=== PATIENT | male | born 1960 | race Caucasian/White ===

== ENCOUNTER 2022-10-03 16:05 | Outpatient (CLI) | payer BC, SELFPAY ==
[2022-10-03 22:05] LABS: Albumin* 4.7 g/dL (3.3-5.0); Chloride* 103 mmol/L (96-114)
[2022-10-03 22:06] LABS: Sodium* 141 mmol/L (135-149)
[2022-10-03 22:08] LABS: Carbon Dioxide* 31 mmol/L (20-32); Cholesterol* 117 mg/dL (90-199); Estimated Glomerular Filt Rate 85 ml/min; Total Protein* 7.6 g/dL (6.0-8.3)
[2022-10-03 22:09] LABS: Alanine Aminotransferase* 86 U/L (4-50); Alkaline Phosphatase* 59 U/L (40-150); Aspartate Amino Transferase* 66 U/L (12-35); Bilirubin Total* 1.6 mg/dL (0.1-1.5); Blood Urea Nitrogen* 18 mg/dL (7-30); Calcium* 9.6 mg/dL (8.4-10.6); Glucose* 129 mg/dL (60-115); Triglycerides* 172 mg/dL (40-149); Uric Acid* 8.6 mg/dL (2.2-8.4)
[2022-10-03 22:10] LABS: HDL Cholesterol* 40 mg/dL (>=40); LDL Cholesterol Calculated 43 mg/dL (<100)
[2022-10-03 22:38] LABS: PSA Screen* 0.62 ng/mL (0.10-4.00)
== END 2022-10-03 16:06 | disposition home or self-care (01) ==
PROVIDERS: PCP Family Medicine; Visit Provider Family Medicine
DX: Z00.00 Encounter for general adult medical examination without abnormal findings (principal); I10 Essential (primary) hypertension; R73.03 Prediabetes; I71.21 Aneurysm of the ascending aorta, without rupture; M10.9 Gout, unspecified; Q23.1 Congenital insufficiency of aortic valve; Z12.5 Encounter for screening for malignant neoplasm of prostate
CPT/HCPCS: 80053; 80061; 84153; 84550

== ENCOUNTER 2023-01-13 09:53 | Outpatient (CLI) | payer BC, SELFPAY | END 2023-01-13 09:54 | disposition home or self-care (01) | LOC: NFLDREF 01-15 14:17 | PROVIDERS: PCP Family Medicine; Referring Provider Family Medicine; Visit Provider Family Medicine | DX: E11.9 Type 2 diabetes mellitus without complications (principal) | CPT/HCPCS: 80076 ==

== ENCOUNTER 2023-08-26 08:26 | Outpatient (CLI) | payer BC, SELFPAY | END 2023-08-26 08:27 | disposition home or self-care (01) | LOC: NFLDREF 08-27 05:44 | PROVIDERS: PCP Family Medicine; Referring Provider Family Medicine; Visit Provider Family Medicine | DX: E11.9 Type 2 diabetes mellitus without complications (principal); I10 Essential (primary) hypertension; Z12.5 Encounter for screening for malignant neoplasm of prostate; Z13.6 Encounter for screening for cardiovascular disorders | CPT/HCPCS: 80053; 80061; 84153 ==

== ENCOUNTER 2023-08-28 09:00 | Outpatient (CLI) | payer BC, SELFPAY | END 2023-08-28 09:01 | disposition home or self-care (01) | LOC: NFLDREF 08-31 05:44 | PROVIDERS: PCP Family Medicine; Referring Provider Family Medicine; Visit Provider Family Medicine | DX: E11.9 Type 2 diabetes mellitus without complications (principal); I10 Essential (primary) hypertension; M10.9 Gout, unspecified; R05.9 Cough, unspecified; Q23.1 Congenital insufficiency of aortic valve; I71.21 Aneurysm of the ascending aorta, without rupture; J32.9 Chronic sinusitis, unspecified; L57.0 Actinic keratosis | CPT/HCPCS: 82043; 82570 ==

== ENCOUNTER 2023-10-23 08:41 | Outpatient (CLI) | payer BC, SELFPAY ==
[2023-10-23] MEDS: PERFLUTREN LIPID MICROSPHERES 2 ML VIAL IV (09:49)
--- NOTE | 2023-10-23 09:50 | PC.NURSE ---
20G IV started in right hand, Definity given per instructional technology coordinator direction, saline lock removed once echo was completed.
== END 2023-10-23 08:42 | disposition home or self-care (01) ==
LOC: RAD 08:42
PROVIDERS: PCP Family Medicine; Visit Provider Family Medicine
DX: I71.21 Aneurysm of the ascending aorta, without rupture (principal); I35.0 Nonrheumatic aortic (valve) stenosis; I07.1 Rheumatic tricuspid insufficiency; Q23.1 Congenital insufficiency of aortic valve
CPT/HCPCS: 93306; Q9957

== ENCOUNTER 2024-01-28 08:26 | Outpatient (CLI) | payer BC, SELFPAY | END 2024-01-28 08:27 | disposition home or self-care (01) | PROVIDERS: PCP Family Medicine; Visit Provider Family Medicine | DX: R79.89 Other specified abnormal findings of blood chemistry (principal) | CPT/HCPCS: 80076 ==

== ENCOUNTER 2024-07-29 07:53 | Outpatient (CLI) | payer BC, SELFPAY | END 2024-07-29 07:54 | disposition home or self-care (01) | LOC: NFLDREF 08-01 14:02 | PROVIDERS: PCP Family Medicine; Referring Provider Family Medicine; Visit Provider Family Medicine | DX: Z00.00 Encounter for general adult medical examination without abnormal findings (principal); E11.9 Type 2 diabetes mellitus without complications; I10 Essential (primary) hypertension; E78.00 Pure hypercholesterolemia, unspecified; R79.89 Other specified abnormal findings of blood chemistry; Z12.5 Encounter for screening for malignant neoplasm of prostate | CPT/HCPCS: 80053; 80061; 82043; 82570; G0103 ==

== ENCOUNTER 2024-11-01 08:20 | Outpatient (CLI) | payer BC, MEDICARE, SELFPAY | END 2024-11-01 08:21 | disposition home or self-care (01) | PROVIDERS: PCP Family Medicine; Referring Provider Family Medicine; Visit Provider Family Medicine | DX: I10 Essential (primary) hypertension (principal); R79.89 Other specified abnormal findings of blood chemistry; E11.9 Type 2 diabetes mellitus without complications | CPT/HCPCS: 80053 ==

== ENCOUNTER 2024-12-13 07:08 | Outpatient (CLI) | payer BC, MEDICARE, SELFPAY ==
--- NOTE | 2024-12-13 07:15 | CRLHL7_ITS ---
For Patients: As a result of the Century Cures Act, medical imaging exams and procedure reports are released immediately into your electronic medical record. You may view this report before your referring provider. If you have questions, please contact your health care provider. INDICATION: Elevated LFTs COMPARISON: none TECHNIQUE: Real time sierra scale imaging and color Doppler analysis was performed of the right upper quadrant. FINDINGS: Liver echotexture is diffusely increased. The liver measures 15.0 cm. No intrahepatic mass. There is a normal appearance of the hepatic IVC and proximal abdominal aorta. There is no evidence of ascites. The gallbladder is of normal size and there is an echogenic stone present within the gallbladder measuring 1.1 cm. The gallbladder wall measures 2 mm in thickness. The common bile duct is of normal size and measures 4 mm in diameter at the level of the tao hepatis. The pancreas is difficult to visualize. 4 millimeter stone in the right kidney is suspected. No hydronephrosis. The right kidney measures 11.8 cm in length. IMPRESSION: Moderately severe diffuse hepatic steatosis. Cholelithiasis. Nonobstructing right nephrolithiasis. Dictated by Constantine Rodriguez MD @ 12/13/2024 10:54:53 AM (Electronically Signed)
== END 2024-12-13 07:09 | disposition home or self-care (01) ==
LOC: US 07:10
PROVIDERS: PCP Family Medicine; Visit Provider Family Medicine
DX: R79.89 Other specified abnormal findings of blood chemistry (principal); K76.0 Fatty (change of) liver, not elsewhere classified; K80.20 Calculus of gallbladder without cholecystitis without obstruction; N20.0 Calculus of kidney
CPT/HCPCS: 76705

== ENCOUNTER 2025-03-15 18:36 | Emergency (ER) | payer BC, SELFPAY ==
--- OUTSIDE RECORDS SUMMARY | 2025-03-15 18:38 | XMS_ITS | Clinical Summary ---
Author Organization [employer] [facility] Address [address] [place] [address] Care Team Providers Care Test Skein Winder Name Role Phone Ulysses Foreman MD Primary Care Provider [phone] Allergies Active Allergy Reactions Criticality Noted Date Comments Diltiazem Rash 01/10/2009 Unlisted Allergen (Include Detail In Comments) Rash 02/12/2017 Silverlon patches, caused red puffy and itchy area where and around patches were applied. Medications tetrahydrozoline- zn sulfate (VISINE-AC) 0.05-0.25 % ophthalmic solution Place 2 Drops into the eye(s). 1 Bottle 0 2 Active albuterol HFA (VENTOLIN HFA) 90 mcg/actuation inhalerIndication s:Cough Inhale 1-2 Puffs by mouth every 4 hours if needed. 1 Inhaler 7 Active aspirin enteric coated (ECOTRIN) 325 mg tablet Take 2 tablets by mouth every 4 hours if needed. 0 0 Active colchicine 0.6 mg tablet Take 0.6 mg by mouth 2 times daily. 1 Active lisinopriL (PRINIVIL; ZESTRIL) 10 mg tabletIndications :Essential hypertension Take 1 Tablet (10 mg) by mouth once daily. 90 Tablet 3 Active rosuvastatin (CRESTOR) 20 mg tabletIndications :Essential hypertension Take 1 Tablet (20 mg) by mouth at bedtime. 90 Tablet 1 3 Active carvediloL 3.125 mg tabletIndications :Primary hypertension,Aneu rysm of ascending aorta without rupture Take 1 Tablet (3.125 mg) by mouth two times daily. Additional refills require cardiology office visit. Please call [phone] to schedule 180 Tablet 5 Active Active Problems Problem Noted Date Diagnosed Date Type 2 diabetes mellitus wit hout complication, without long-term current use of insulin 01/13/2019 Overview (01/13/2019): December 2018: New diagnosis with fasting blood sugar 156 and hemoglobin A1c of 6.5. Deep vein thrombosis (DVT) o f brachial vein of left upper extremity 10/08/2016 Overview (11/07/2016): Sep 2016: after IV placed in the left arm, DVT of Brachial Vein, Started on xarelto and coag labs ordered prior to starting xarelto. Sep 2016: Antithrombin III was low and lupus anticoagulant was high. See Gall Consult Oct 2016: Antiphospholipid antibody was positive, and high titer positive Beta-2 Glycoprotein 1 Antibody, if positive on repeat testing ( after off xarelto) then exterminator anticoagulation, then switch to coumadin? Syncope 10/01/2016 Ascending aortic aneurysm 10/01/2016 Overview (10/01/2016): - Per [place] CT, 4.5cm Gout 01/21/2014 Overview (01/21/2014): December 2013: Left great toe per [facility] ER visit. Seasonal allergies 08/05/2011 SVT (supraventricular tachycardia) 11/17/2008 Overview (10/01/2016): - AVNRT s/p ablation 2008 - No more medications needed after procedure - no recurrent episodes Snoring 11/17/2008 Regular astigmatism 11/25/2007 Presbyopia 11/25/2007 Myopia 11/25/2007 Undiagnosed cardiac murmurs 07/02/2007 Overview (07/02/2007): echocardiogram done several yers back- patient obtaining records Essential hypertension 07/02/2007 Overview (11/10/2016): Sep 2016: Lisinopril started 10mg. Oct 2016: lisinopril doubled to 20mg. LATTICE DEGENERATION- OU WTH HOLES OS 06/04/2000 High triglycerides Encounters Date Type Department Care Team Description 01/19/2025 [place] [facility] [place] [address] [place] [address] Anthony Mg MD, PhD Refill Request (Carvedilol) 01/09/2025 [place] [facility] [place] [address] [place] [address] Jessica Morley I, RN Device Check 12/20/2024 10:00 AM CDT Ancillary Procedure [facility] [address] [facility] [address] [place] [address] 12/20/2024 9:00 AM CDT Ancillary Procedure [facility] [address] [facility] [address] [place] [address] 12/20/2024 8:40 AM CDT Orders Only [facility] [address] [facility] [address] [place] [address] Lab 12/20/2024 Travel 12/17/2024 Travel from Last 3 Months Immunizations Immunization Administration Dates Next Due Td (Age >=7 Years) 10/30/2000 Tdap 01/10/2009 Family History * Patient is adopted Medical History Relation Name Comments Genetic Other unobtainable ad opted, no previous problems anesthesia Relation Name Status Comments Other Social History Tobacco Use Types Packs/Day Years Used Date Smoking Tobacco: Former Cigarettes 0.5 4.2 1 977 - 12/27/1980 Smokeless Tobacco: Never Tobacco Cessation:Counseling Given: Yes Comments:quit in 1980 Alcohol Use Standard Drinks/Week Comments Yes 0 (1 standard drink = 0.6 oz pure alcohol) Alcoholic Drinks/day: <1, occasional use PHQ-2 Answer Date Recorded PHQ-2 Score 0 11/27/2018 Social Connections Answer Date Recorded Frequency of Communication with Friends and Fami ly Not on file 09/28/2021 Financial Resource Strain Answer Date R ecorded Difficulty of Paying Living Expenses Not on file 09/28/2021 Difficulty of Paying Living Expenses Not on file 09/28/2021 Sex and Gender Information Value Date Recorded Sex Assigned at Not on file Legal Sex Male 5:25 AM [employer] Gender Identity Not on file Sexual Orientation Not on file Obstetrics History Last Filed Vital Signs Vital Sign Reading Time Taken Comments Blood Pressure 124/84 07/01/2021 8:28 AM CDT Pulse 48 07/01/2021 8:28 AM CDT Temperature 36.7 C (98 F) 12/29/2016 11:44 AM CDT Respiratory Rate 12 01/06/2019 12:49 PM CDT Oxygen Saturation 98% 02/12/2017 11:43 AM CDT Inhaled Oxygen Concentration - - Weight 97.7 kg (215 lb 6.4 oz) 07/01/2021 8:28 A M CDT Height 170.2 cm (5' 7) 07/01/2021 8:28 AM CDT Body Mass Index 33.74 07/01/2021 8:28 AM CDT Plan of Treatment Upcoming Encounters Date Type Department Care Team (Late st Contact Info) Description 06/01/2025 Cardiac Device Check [employer] [facility] [phone] Health Maintenance Due Date Last Done Comments HIV for age 15-65 1974 Hepatitis C screening for age 18-79 1977 Pneumococcal series for age 50+ (1 of 2 - PCV) 1978 Colonoscopy through age 75 2004 Zoster (shingles) series for age 50+ (1 of 2) 2009 Tetanus booster 01/10/2019 01/10/2009, 10/30/2000 Depression screening for age 12+ 01/07/2020 01/06/2019, 01/20/2018, 07/14/2016 BMI (ht and wt on same day) for age 18+ 07/01/2022 07/01/2021, 01/06/2019, 01/20/2018, Additional history exists Lipids for age 45-75 01/13/2024 01/12/2019, 01/20/2018, 11/18/2008 COVID-19 vaccine series ( season) 2024 Influenza Vaccine (Season Ended) 2025 RSV vaccine for adults or (1 - 1-dose 75+ series) 2034 Tdap Completed 01/10/2009 Hepatitis B series for 19+ Aged Out N o longer eligible based on patient's age to complete this topic Goals Goal Patient Goal Type Associated Problems Recent Progress Patient-Stated? Author BLOOD PRESSURE - MAINTAINS BP less than 140/90 Blood Pressure No Sunita Moody MD Procedures Procedure Name Priority Date/Time Associated Diagnosis Comments CTA CHEST - CV DUAL READ Routine 12/20/2024 9:50 AM CDT Aneurysm of ascending aorta without rupture Bicuspid aortic valve CTA CHEST - RAD DUAL READ Routine 12/20/2024 9:50 AM CDT Aneurysm of ascending aorta without rupture Bicuspid aortic valve ECHO TTE COMPLETE WO CONTRAST Routine 12/20/2024 9:34 AM CDT Aneurysm of ascending aorta without rupture Bicuspid aortic valve CREATININE,ISTAT Routine 12/20/2024 8:32 AM CDT Preprocedural cardiovascular examination LIPID PANEL W REFLEX MEASURED LDL Routine 01/12/2019 8:59 AM CDT Screening cholesterol level from Last 3 Months or Most Recently Relevant to Health Maintenance Results * CTA CHEST - CV DUAL READ (12/20/2024 9:50 AM CDT) Anatomical Region Laterality Modality CHEST Computed Tomogra phy Narrative 12/20/2024 3:40 PM CDT STUDY: CHEST AORTIC CT ANGIOGRAPHY Study date: 12/20/2024 Indication: 64 year-old male with bicuspid aortic valve and ascending aortic aneurysm has been referred for evaluation of thoracic aorta morphology. STUDY PARAMETERS: Scanner: Siemens Definition Force Contrast: 90 ml of Omnipaque 350 Scan protocol: Flash Radiation dose length product: 192 FINAL IMPRESSIONS: Enlarged ascending aorta with maximum cross-sectional diameters of 48 x 47 mm and maximum cross-sectional area to height ratio of 10.1 cm2/m. Normal abdominal aorta size and morphology. No prior cross sectional imaging available for comparison. Please see separate radiology report for nonvascular findings. FINDINGS: Thoracic aorta: Left-sided arch. No atheromatous disease in the entire thoracic aorta. Maximum true cross-sectional dimensions are - Aortic sinus: 40 x 39 x 36 mm maximum [id number] and cross-sectional area of 11.8 cm2 Ascending aorta: 48 x 47 mm and cross-sectional area of 17.2 cm2 , area height index 10.1 cm2/m. Arch: 24 x 25 mm Descending thoracic aorta: 25 x 24 mm. Left atrium: Normal contrast opacification. Pulmonary veins: Normal anatomy. Coronary arteries: Mild calcification noted along the courses of the LAD. The aortic valve is moderately calcified. Right heart: Device leads in right atrium and ventricle Pericardium: No effusion Great arteries: Normal great artery branching pattern. Brachiocephalic artery: Patent. Visualized right subclavian artery: Patent. Visualized right common carotid artery: Patent. Visualized left common carotid artery: Patent. Visualized left subclavian artery: Patent. Abdominal aorta: Normal size and morphology. No atherosclerosis. Abdominal aorta branch arteries: Splenic artery: Separate ostium from hepatic artery and patent. Hepatic artery: Sepearte ostium from splenic artery and patent Visualized superior mesenteric artery: Patent. FOR PATIENT: Results are automatically released to your [employer]) account once available, in compliance with federal regulations. This means that you may see your results before your provider has had a chance to review them. Please allow 2-3 business days for your provider to comment on the results. Lemuel Castelan MD General Management Architect Reginald Weston MD Cardiology [address], [address] 12/20/2024 3:34 PM Anthony Mg MD, PhD CT Fin al Result * CTA CHEST - RAD DUAL READ (12/20/2024 9:50 AM CDT) Anatomical Region Laterality Modality CHEST Computed Tomogra phy 12/20/2024 12:3 9 PM CDT Impressions 12/20/2024 12:39 PM CDT : 1. See separate cardiology report for cardiac findings. 2. Cholelithiasis. Please note that all CT scans at this facility use dose modulation, iterative reconstruction and/or weight-based dosing when appropriate to reduce radiation dose to as low as reasonably achievable. Please note that all CT scans at this facility use dose modulation, iterative reconstruction, and/or weight-based dosing when appropriate to reduce radiation dose to as low as reasonably achievable. Dictated by Ankur Pemberton MD @ 12/20/2024 12:39:01 PM (Electronically Signed) Narrative 12/20/2024 12:39 PM CDT For Patients: As a result of the Cures Act, medical imaging exams and procedure reports are released immediately into your electronic medical record. You may view this report before your referring provider. If you have questions, please contact your health care provider. THIS IS THE RADIOLOGY OVER READ REPORT OF A DUAL READ STUDY. READ THE SEPARATE CARDIOLOGY REPORT FOR CARDIOVASCULAR FINDINGS. REPORTS MAY BE FINALIZED AT DIFFERENT TIMES. : COMPARISON: : Two-view chest 25 December 2016 TECHNIQUE: : Please see cardiology report for technical information. This exam is being performed in conjunction with the services provided by the [facility] ([facility]). INDICATION: Cardiac over-read. Ascending aortic aneurysm. FINDINGS: No pathologic adenopathy. No pericardial or pleural effusion. No hiatus hernia. Large lamellated mineralized dependent stone in the proximal gallbladder. No significant finding in lung parenchyma. Procedure Note Ankur Pemberton MD - 12/20/2024 For Patients: As a result of the Cures Act, medical imagingexams and procedure reports are released immediately into your electronicmedical record. You may view this report before your referring provider.If you have questions, please contact your health care provider. THIS IS THE RADIOLOGY OVER READ REPORT OF A DUAL READ STUDY. READ THESEPARATE CARDIOLOGY REPORT FOR CARDIOVASCULAR FINDINGS. REPORTS MAY BEFINALIZED AT DIFFERENT TIMES. : COMPARISON: : Two-view chest 25 December 2016 TECHNIQUE: : Please see cardiology report for technical information. This exam is being performed in conjunction with the services provided bythe [facility] ([facility]). INDICATION: Cardiac over-read. Ascending aortic aneurysm. FINDINGS: No pathologic adenopathy. No pericardial or pleural effusion. No hiatushernia. Large lamellated mineralized dependent stone in the proximalgallbladder. No significant finding in lung parenchyma. IMPRESSION: : 1. See separate cardiology report for cardiac findings. 2. Cholelithiasis. Please note that all CT scans at this facility use dose modulation,iterative reconstruction and/or weight-based dosing when appropriate toreduce radiation dose to as low as reasonably achievable. Please note that all CT scans at this facility use dose modulation,iterative reconstruction, and/or weight-based dosing when appropriate toreduce radiation dose to as low as reasonably achievable. Dictated by Ankur Pemberton MD @ 12/20/2024 12:39:01 PM (Electronically Signed) us Anthony Mg MD, PhD CT Fin al Result * ECHO TTE COMPLETE WO CONTRAST (12/20/2024 9:34 AM CDT) AORTIC VALVE MEAN PG 27 mmHg PEAK TR VELOCITY 2.3 m/s LVEDD 4.7 cm EJECTION FRACTION 55 - 60% Anatomical Region Laterality Modality Ultrasound 12/20/2024 8:40 AM CDT Narrative 12/20/2024 9:52 AM CDT ECHOCARDIOGRAM HELIO CRAIG : 1960 64 years Study Date: 12/20/2024 8:40:19 AM Gender: M BP: 124/84 mmHg Height: 170.18 cm BSA: 2.09 m Weight: 97.52 kg Tech: EVELYN Referring MD: ANTHONY MG Site: [facility] Reading Location: MOBILE - OP Patient Location: Outpatient. Procedure: 2D, Color Doppler and Spectral Doppler. Indication for study: Aneurysm of ascending aorta without rupture; Bicuspid aortic valve Cardiac Rhythm: Normal sinus.Study quality: Fair. Final Impressions: 1. Normal LV size, normal wall thickness, normal global systolic function with an estimated EF of 55 - 60%. 2. Bicuspid aortic valve with fusion of the left and right coronary cusps. Moderate stenosis and mild regurgitation. The aortic valve peak velocity is 3.4 m/s, the peak gradient is 45 mmHg, and the mean gradient is 27 mmHg. The aortic valve area is 1.25 cm with a dimensionless index of 0.25. The stroke volume index is 46.0 ml/m . 3. Right ventricular cavity size is normal, global systolic RV function is normal. 4. Tricuspid valve is normal and mild-moderate tricuspid regurgitation. 5. Dilated ascending aorta, diameter of 4.8 cm (upper limit of normal for age, sex, and BSA is 4.2 cm), Height Index 2.82. 6. Dilated sinus of Valsalva, diameter of 4.4 cm (upper limt of normal for age, sex, and BSA is 4.2 cm), Height Index 2.59 cm/m. Comparison Compared to prior exam of 10/23/2023, there has been no significant change. Chamber Sizes and Function Normal left ventricular size, normal wall thickness, normal global systolic function with an estimated EF of 55 - 60%. No resting regional wall motion abnormality visualized. Left atrial size is normal. Left atrial pressure is normal. Right ventricular cavity size is normal, global systolic RV function is normal. RV wall thickness is normal. Dual chamber pacemaker leads are seen in the right atrium and right ventricle. Pacing wire/catheter visualized in the right ventricle and pacing wire/catheter visualized in the right atrium. The right atrium is normal. The pulmonary artery is of normal size and origin. The sinus of Valsalva is dilated. The ascending aorta is dilated. Valves, RV Pressures and Diastolic Function The aortic valve is Bicuspid aortic valve with fusion of the left and right coronary cusps. and calcified, moderate stenosis and mild regurgitation. The mitral valve is normal in structure, trace mitral regurgitation. Indeterminate pattern of LV diastolic filling. The tricuspid valve is normal in structure and mild-moderate tricuspid regurgitation. The tricuspid regurgitant velocity is 2.3 m/s, the estimated right ventricular systolic pressure is 21 mmHg plus right atrial pressure. The pulmonic valve is not well visualized. Trace pulmonary regurgitation. Masses, Effusion, Shunts There is no pericardial effusion. The inferior vena cava is normal sized, respiratory size variation greater than 50%. No left to right shunting was detected by limited color flow Doppler interrogation of the interatrial septum. MEASUREMENTS AND CALCULATIONS 2-D Measurements and LV Function: LVID (d) 4.7 cm LV FS% (2D) 40 % LVID (s) 2.8 cm LVOT diameter 2.5 cm IVS (d) 1.0 cm HR 70 bpm LVPW (d) 1.1 cm LA Vol index 26 ml/m2 Ao Sinus 4.4 cm RV Basal Diam 3.4 cm Ao Sinus ULN 4.2 cm Asc Ao 4.8 cm Asc Ao ULN 4.2 cm Diastology: Mitral Tissue Doppler E Peak 0.7 m/s e', Septum 0.05 m/s A Peak 0.9 m/s e', Lateral 0.08 m/s E/A 0.8 E/e' Average 11.05 DT 207 msec Aortic Valve: Vmax 3.4 m/s SAIRA (V) 1.27 cm VTI 0.77 m SAIRA (I) 1.25 cm LVOT V max 0.9 m/s Max PG 45 mmHg LVOT VTI 0.20 m Mean PG 27 mmHg SV 96 ml Dim Index 0.25 SV index 46 ml/m CO 6.7 l/min CI 3.2 l/min/m Mitral Valve: MVA 3.7 cm MV P 1/2 60 msec Tricuspid Valve and estimated PA pressures: TR Vmax 2.3 m/s TAPSE 1.9 cm TR maxG 21 mmHg . This study was interpreted by an [facility] accredited facility. Final Procedure Note Dominguez Bullard MD - 12/20/2024 ECHOCARDIOGRAM HELIO CRAIG : 1960 64 years Study Date: 12/20/2024 8:40:19 AM Gender: M BP: 124/84 mmHg Height: 170.18 cm BSA: 2.09 m Weight: 97.52 kg Tech: [facility] Referring MD: ANTHONY MG Site: [facility] Reading Location: MOBILE - OP Patient Location: Outpatient. Procedure: 2D, Color Doppler and Spectral Doppler. Indication for study: Aneurysm of ascending aorta without rupture;Bicuspid aortic valve Cardiac Rhythm: Normal sinus.Study quality: Fair. Final Impressions: 1. Normal LV size, normal wall thickness, normal global systolic functionwith an estimated EF of 55 - 60%. 2. Bicuspid aortic valve with fusion of the left and right coronarycusps. Moderate stenosis and mild regurgitation. The aortic valve peakvelocity is 3.4 m/s, the peak gradient is 45 mmHg, and the mean gradientis 27 mmHg. The aortic valve area is 1.25 cm with a dimensionless indexof 0.25. The stroke volume index is 46.0 ml/m . 3. Right ventricular cavity size is normal, global systolic RV functionis normal. 4. Tricuspid valve is normal and mild-moderate tricuspid regurgitation. 5. Dilated ascending aorta, diameter of 4.8 cm (upper limit of normal forage, sex, and BSA is 4.2 cm), Height Index 2.82. 6. Dilated sinus of Valsalva, diameter of 4.4 cm (upper limt of normalfor age, sex, and BSA is 4.2 cm), Height Index 2.59 cm/m. Comparison Compared to prior exam of 10/23/2023, there has been no significantchange. Chamber Sizes and Function Normal left ventricular size, normal wall thickness, normal globalsystolic function with an estimated EF of 55 - 60%. No resting regionalwall motion abnormality visualized. Left atrial size is normal. Leftatrial pressure is normal. Right ventricular cavity size is normal, globalsystolic RV function is normal. RV wall thickness is normal. Dual chamberpacemaker leads are seen in the right atrium and right ventricle. Pacingwire/catheter visualized in the right ventricle and pacing wire/cathetervisualized in the right atrium. The right atrium is normal. The pulmonaryartery is of normal size and origin. The sinus of Valsalva is dilated. Theascending aorta is dilated. Valves, RV Pressures and Diastolic Function The aortic valve is Bicuspid aortic valve with fusion of the left andright coronary cusps. and calcified, moderate stenosis and mildregurgitation. The mitral valve is normal in structure, trace mitralregurgitation. Indeterminate pattern of LV diastolic filling. Thetricuspid valve is normal in structure and mild-moderate tricuspidregurgitation. The tricuspid regurgitant velocity is 2.3 m/s, theestimated right ventricular systolic pressure is 21 mmHg plus right atrialpressure. The pulmonic valve is not well visualized. Trace pulmonaryregurgitation. Masses, Effusion, Shunts There is no pericardial effusion. The inferior vena cava is normal sized,respiratory size variation greater than 50%. No left to right shunting wasdetected by limited color flow Doppler interrogation of the interatrialseptum. MEASUREMENTS AND CALCULATIONS 2-D Measurements and LV Function: LVID (d) 4.7 cm LV FS% (2D) 40 % LVID (s) 2.8 cm LVOT diameter 2.5 cm IVS (d) 1.0 cm HR 70 bpm LVPW (d) 1.1 cm LA Vol index 26 ml/m2 Ao Sinus 4.4 cm RV Basal Diam 3.4 cm Ao Sinus ULN 4.2 cm Asc Ao 4.8 cm Asc Ao ULN 4.2 cm Diastology: Mitral Tissue Doppler E Peak 0.7 m/s e', Septum 0.05 m/s A Peak 0.9 m/s e', Lateral 0.08 m/s E/A 0.8 E/e' Average 11.05 DT 207 msec Aortic Valve: Vmax 3.4 m/s SAIRA (V) 1.27 cm VTI 0.77 m SAIRA (I) 1.25 cm LVOT V max 0.9 m/s Max PG 45 mmHg LVOT VTI 0.20 m Mean PG 27 mmHg SV 96 ml Dim Index 0.25 SV index 46 ml/m CO 6.7 l/min CI 3.2 l/min/m Mitral Valve: MVA 3.7 cm MV P 1/2 60 msec Tricuspid Valve and estimated PA pressures: TR Vmax 2.3 m/s TAPSE 1.9 cm TR maxG 21 mmHg . This study was interpreted by an [facility] accredited facility. Final Anthony Mg MD, PhD ECHO ORD Fin al Result * CREATININE,ISTAT (12/20/2024 8:32 AM CDT) POCT,CREATININE , ISTAT 1.1 0.6 - 1.3 mg/dL [facility] Blood BLOOD SPECIMEN / Unknown 12/20/2024 8:32 AM CDT 12/20/2024 8:32 AM CDT Anthony Mg MD, PhD CHEMISTRY Fin al Result [facility] [address] [place] [address], [facility]Urgent [facility]) [address] [place] [address] * LIPID PANEL W REFLEX MEASURED LDL (01/12/2019 8:59 AM CDT) CHOLESTEROL,TOTAL 173 100 - 199 mg/dL 01/12/2019 4:42 PM CDT [facility] TRIGLYCERIDES 147 <150 mg/dL 01/12/2019 4:42 PM CDT [facility] HDL CHOLESTEROL 41 >40 mg/dL 9 4:42 PM CDT [facility] NON-HDL CHOLESTEROL 132 <145 mg/dl 01/12/2019 4:42 PM CDT [facility] CHOL/HDL RATIO 4.22 <4.50 01/12/2019 4:42 PM CDT [facility] LDL CHOLESTEROL 103 <=130 mg/dL 01/12/2019 4:42 PM CDT [facility] PROVIDER ORDERED STATUS FASTING 01/12/2019 4:42 PM CDT [facility] Blood BLOOD SPECIMEN / Unknown Venipuncture / Unknown 01/12/2019 8:59 AM CDT 01/12/2019 8:59 AM CDT us Tavo Balderrama MD CHEMISTRY Final Res ult [facility] [address] [place] [address], from Last 3 Months or Most Recently Relevant to Health Maintenance Insurance [facility] Advance Directives * Full Code (Latest Code Status on File) Date Activated Date Inactivated Comments 12/24/2016 7:04 AM 12/25/2016 1:11 PM * Full Code Date Activated Date Inactivated Comments 10/01/2016 1:33 PM 10/03/2016 2:46 PM Question Answer Comments Code Status Discussion: Discussed * Full Code Date Activated Date Inactivated Comments 01/19/2009 6:16 AM 01/19/2009 5:10 PM Care Teams Test Skein Winder Relationship Specialty Start Date End Date Ulysses Foreman MD [address] [place] [address] PCP - General Family Practice 04/10/20
[2025-03-15 18:43] VITALS: BP 172/103; PULSE 68; RESP 18; TEMP 36.6; O2SAT 98; BMI 33.7
--- NOTE | 2025-03-15 19:24 | CRLHL7_ITS ---
For Patients: As a result of the Century Cures Act, medical imaging exams and procedure reports are released immediately into your electronic medical record. You may view this report before your referring provider. If you have questions, please contact your health care provider. INDICATION: Right flank pain. TECHNIQUE: CT abdomen and pelvis without contrast. COMPARISON: None. FINDINGS: Lower chest: Partially imaged cardiac device leads. The lung bases are clear. Liver: Normal in size and attenuation. No suspicious masses. Gallbladder and bile ducts: Cholelithiasis. No inflammation or biliary ductal dilation. Pancreas: Unremarkable. No mass or inflammation. Spleen: Normal in size. No masses. Adrenal glands: Normal in size. No nodules. Kidneys: Punctate nonobstructing right nephrolith. GI tract: Diverticulosis without pericolonic inflammation. No obstruction. Normal appendix. Vasculature: Abdominal aorta is normal in caliber. Lymph nodes: No lymphadenopathy. Peritoneum/Abdominal Wall: Unremarkable. No free air or significant free fluid. Pelvis: Tiny focus of air within the bladder lumen. No pelvic masses. Bones: Unremarkable for age. IMPRESSION: 1. Punctate nonobstructing right nephrolith. No evidence for obstructive uropathy. 2. Tiny focus of air within the bladder lumen, possibly sequela of recent instrumentation. Cystitis cannot be excluded. 3. Cholelithiasis without evidence for acute cholecystitis. Please note that all CT scans at this facility use dose modulation, iterative reconstruction, and/or weight-based dosing when appropriate to reduce radiation dose to as low as reasonably achievable. Dictated by Lionel Everett MD @ 03/15/2025 8:00:03 PM (Electronically Signed)
--- NOTE | 2025-03-15 19:24 | ED.GENADULT ---
HPI - General Adult General Date Seen: 03/29/25 Chief complaint: Flank Pain Stated complaint: Lower R side back pain Time Seen by Provider: 03/15/25 18:56 Source: patient Mode of arrival: ambulatory Limitations: no limitations History of Present Illness HPI narrative: Patient is a 64-year-old male presenting to the emergency department for right flank pain. States he has a history of back issues but has never had pain like this before. States to constant throbbing pain to his right flank that is been gradually getting worse over the past 4 days. Typically a pain like this is able to stretch it out this has been unable to get rid of this pain. Has been taking aspirin home without any improvement in his symptoms. States he is not allowed to take NSAIDs. There has not had any fevers or chills. States the pain radiates from his right flank down his leg. Denies any numbness. Denies saddle anesthesia, IV drug use, urinary or bowel incontinence, urinary retention. No history of kidney stones. States he has been unable to sleep the past few nights because of the pain. States he cannot get comfortable. Denies dysuria, hematuria, abdominal pain, chest pain, shortness of breath, weakness, numbness. Related Data Previous Rx's ?Medication ?Instructions ?Recorded albuterol sulfate 90 mcg/actuation 2 puff inhalation Q6H PRN 08/28/23 aerosol inhaler (Ventolin HFA) shortness of breath or wheezing #8.5 grams aspirin 81 mg tablet,delayed 81 mg PO QDAY #90 tabs 08/28/23 release colchicine 0.6 mg tablet 0.6 mg PO BID #180 tabs 08/02/24 rosuvastatin 20 mg tablet 20 mg PO QDAY #90 tabs 08/02/24 carvedilol 3.125 mg tablet 6.25 mg (2 x 3.125 mg) PO BID #360 02/07/25 tabs lisinopril 40 mg tablet 40 mg PO QDAY #90 tabs 02/07/25 metformin 750 mg tablet,extended 1,500 mg (2 x 750 mg) PO QDAY #180 02/07/25 release 24 hr tabs Allergies Allergy/AdvReac Type Severity Reaction Status Date / Time alcohol (From Mastisol Allergy Unknown Unknown Verified 03/15/25 18:48 Adhesive) diltiazem Allergy Unknown Unknown Verified 03/15/25 18:48 gum mastic (From Mastisol Allergy Unknown Unknown Verified 03/15/25 18:48 Adhesive) methyl salicylate (From Allergy Unknown Unknown Verified 03/15/25 18:48 Mastisol Adhesive) storax (From Mastisol Allergy Unknown Unknown Verified 03/15/25 18:48 Adhesive) hayfever Allergy Mild congestion Uncoded 02/07/25 08:44 Review of Systems Status of ROS: Reports: 10 or more systems reviewed and unremarkable except as noted in History and below [facility] Medical History Elevated LFTs ?R79.89 - Other specified abnormal findings of blood chemistry (ICD-10) Diabetes mellitus ?E11.9 - Type 2 diabetes mellitus without complications (ICD-10) Encounter for annual physical exam ?Z00.00 - Encounter for general adult medical examination without abnormal findings (ICD-10) Social History Narrative: Retired 2 children Former smoker, quit in 1980, smoked for 4 years What is your current living situation?: declined to answer Problems where you live: declined to answer In the past 12 months, utilities in danger of being shut off: declined to answer In past 12 months, lack of transportation kept you from medical appts, meetings, work, or getting things needed for daily living: declined to answer In the past 12 mos, have been you worried that your food would run out before you had money to buy more?: declined to answer In the past 12 mos, the food you bought just didn't last and you didn't have money to buy more?: declined to answer Smoking Status: Former smoker How often do you have a drink containing alcohol: monthly or less How often do you have six or more drinks on one occasion: Never AUDIT-C Alcohol total score: 1 Non-prescribed substance use: denies use How often does anyone, including family, friends and others, physically hurt you: decline to answer How often does anyone, including family, friends and others, insult or talk down to you: decline to answer How often does anyone, including family, friends and others, threaten you with harm: decline to answer How often does anyone, including family, friends and others, scream or curse at you: decline to answer Health Related Social Needs: unsheltered homelessness (Z59.02) Exam Narrative: Exam Narrative: Const: Well-nourished, Well-developed, in mild distress Eyes: PERRL, no conjunctival injection, and symmetrical lids HENT: Atraumatic external nose and ears. Moist mucous membranes. Neck: Symmetric, trachea midline, No thyromegaly. CVS: RRR, No murmurs or gallops. Peripheral pulses 2+ and equal in all extremities RESP: Unlabored respiratory effort. Clear to auscultation bilaterally. GI: Nontender/Nondistended, No rebound or guarding. MSK:Extremities w/o deformity, Normal Active ROM, some tenderness in the right paraspinal muscles just above his posterior superior iliac spine Skin: Warm, Dry. No rashes or lesions. Neuro: Normal Muscle tone, No focal neurological deficits. Psych: Awake, Alert, & Oriented x3. Appropriate mood and affect. Const: Vital Signs, click to edit/add: Vital Signs - 24 hr 03/15/25 18:43 Temperature 98 F Pulse Rate [Right Pulse Oximeter] 68 Respiratory Rate 18 Blood Pressure [Ri ght Upper Arm] 172/103 H Pulse Oximetry 98 Oxygen Delivery Me thod Room Air Course Vital Signs Vital signs: Initial Vital Signs Temperature 98 F 03/15/25 18:43 Temperature Source Temporal Artery Scan 03/15/25 18:43 Pulse Rate 68 03/15/25 18:43 Pulse Rhythm Regular 03/15/25 18:43 Pulse Strength 3+ Normal 03/15/25 18:43 Respiratory Rate 18 03/15/25 18:43 Blood Pressure 172/103 H 03/15/25 18:43 Blood Pressure Mean 126 H 03/15/25 18:43 Blood Pressure Position Sitting 03/15/25 18:43 Pulse Oximetry 98 03/15/25 18:43 Oxygen Delivery Method Room Air 03/15/25 18:43 Vital Signs Temperature 98 F 03/15/25 18:43 Pulse Rate 68 03/15/25 18:43 Respiratory Rate 18 03/15/25 18:43 Blood Pressure 172/103 H 03/15/25 18:43 Pulse Oximetry 98 03/15/25 18:43 Oxygen Delivery Method Room Air 03/15/25 18:43 Temperature 98 F 03/15/25 18:43 Pulse Rate 68 03/15/25 18:43 Respiratory Rate 18 03/15/25 18:43 Blood Pressure 172/103 H 03/15/25 18:43 Pulse Oximetry 98 03/15/25 18:43 Oxygen Delivery Method Room Air 03/15/25 18:43 Medical Decision Making MDM Narrative Medical decision making narrative: Patient is a 64-year-old male presenting for right low back pain. Pain is in the paraspinal musculature. This pain could be related to a kidney stone but seems unlikely. I explained to him by his pain sounds more like sciatica but he was concerned would kidney stone [address] scan to rule out. This will be done. He is not having any red flag symptoms of cauda equina. Do not believe MRI is necessary. CT scan showed no acute concerning abnormalities. There is some possible cystitis seen on the CT scan but he does not have any dysuria, hematuria and pain is not consistent with a UTI. I do not believe urinalysis is necessary. Most likely this is sciatica and he will be discharged home with oxycodone via instymeds. Discharge Plan Discharge Clinical Impression: Acute right-sided low back pain Qualifiers: Sciatica presence: with sciatica Sciatica laterality: sciatica of right side Qualified Code(s): M54.41 - Lumbago with sciatica, right side Patient Disposition: Home, Self-Care Condition: Stable Instructions: Acute Low Back Pain (ED) Additional Instructions: Continue to take your home pain medications but those are not helping you can try using the oxycodone. I do recommend following up with the primary care provider for possible physical therapy referral. If you developed urinary retention, bowel or bladder incontinence, or numbness of the area that would be sitting on a saddle or bike seat return for re-evaluation. Prescriptions: No Action metformin 750 mg tablet extended release 24 hr 1,500 mg PO QDAY Qty: 180 3RF lisinopril 40 mg tablet 40 mg PO QDAY Qty: 90 1RF carvedilol 3.125 mg tablet 6.25 mg PO BID Qty: 360 0RF Rx Instructions: must administer with a meal/food albuterol sulfate [Ventolin HFA] 90 mcg/actuation HFA aerosol inhaler 2 puff inhalation Q6H PRN (Reason: shortness of breath or wheezing) Qty: 8.5 3RF aspirin 81 mg tablet,delayed release (DR/EC) 81 mg PO QDAY Qty: 90 3RF colchicine 0.6 mg tablet 0.6 mg PO BID Qty: 180 3RF rosuvastatin 20 mg tablet 20 mg PO QDAY Qty: 90 4RF Follow Up/Referrals: Ulysses Foreman MD [Primary Care Provider, Family Practice] Stand Alone Forms: MyHealth Info Instructions
== END 2025-03-15 20:25 | disposition home or self-care (01) ==
PROVIDERS: Emergency Provider Student in an Organized Health Care Education/Training Program; PCP Family Medicine
DX: M54.41 Lumbago with sciatica, right side (principal)
CPT/HCPCS: 74176; 99283

== ENCOUNTER 2025-03-17 05:57 | Emergency (ER) | payer BC, SELFPAY ==
--- OUTSIDE RECORDS SUMMARY | 2025-03-17 05:59 | XMS_ITS | Clinical Summary ---
Author Organization [facility] Address [address] [place] [id number] Care Team Providers Care Supervisor [employer] Name Role Phone Ulysses Foreman MD Primary Care Provider [phone] Allergies Active Allergy Reactions Criticality Noted Date [...] refills require cardiology office visit. Please call [phone] to schedule 180 Tablet 5 Active Active [...] repeat testing ( after off xarelto) then adjunct faculty for medical terminology anticoagulation, then switch to coumadin? Syncope 10/01/2016 Ascending aortic aneurysm 10/01/2016 Overview (10/01/2016): - Per [place] CT, 4.5cm Gout 01/21/2014 Overview (01/21/2014): December [...] Type Department Care Team Description 01/19/2025 Refill [facility] [address] [place] [address] Anthony Mg MD, PhD Refill Request (Carvedilol) 01/09/2025 Telephone [facility] [address] [place] [address] Jessica Morley I, RN Device Check 12/20/2024 10:00 AM CDT Ancillary Procedure [facility] [address] [facility] [address] [place] [address] 12/20/2024 9:00 AM CDT Ancillary Procedure [facility] [address] [facility] [address] [place] [address] 12/20/2024 8:40 AM CDT Orders Only [facility] [id number] [facility] [address] [place] [address] Lab 12/20/2024 Travel 12/17/2024 Travel from Last [...] on file Legal Sex Male 5:25 AM [employer] Gender Identity Not on file Sexual Orientation [...] Contact Info) Description 06/01/2025 Cardiac Device Check [facility] [phone] Health Maintenance Due Date Last Done Comments [...] 40 x 39 x 36 mm maximum [id number] and cross-sectional area of 11.8 cm2 Ascending [...] PATIENT: Results are automatically released to your [employer] account once available, in compliance with federal regulations. This means that you may see your results before your provider has had a chance to review them. Please allow 2-3 business days for your provider to comment on the results. Lemuel Castelan MD General Nurses Superintendent Reginald Weston MD Cardiology [address], [address] 12/20/2024 3:34 PM Anthony [...] low as reasonably achievable. Dictated by Ankur ePmberton MD @ 12/20/2024 12:39:01 PM (Electronically Signed) [...] conjunction with the services provided by the [facility] ([facility]). INDICATION: Cardiac over-read. Ascending aortic aneurysm. FINDINGS: [...] in conjunction with the services provided bythe [facility] ([facility]). INDICATION: Cardiac over-read. Ascending aortic aneurysm. FINDINGS: [...] Tech: EVELYN Referring MD: ANTHONY MG Site: [facility] Reading Location: MOBILE - OP Patient Location: [...] . This study was interpreted by an [facility] accredited facility. Final Procedure Note Dominguez Bullard MD - 12/20/2024 ECHOCARDIOGRAM HELIO CRAIG : 1960 64 years Study Date: 12/20/2024 8:40:19 AM Gender: M BP: 124/84 mmHg Height: 170.18 cm BSA: 2.09 m Weight: 97.52 kg Tech: [facility] Referring MD: ANTHONY MG Site: [facility] Reading Location: MOBILE - OP Patient Location: [...] . This study was interpreted by an [facility] accredited facility. Final Anthony Mg MD, PhD ECHO ORD Fin al Result * CREATININE,ISTAT (12/20/2024 8:32 AM CDT) POCT,CREATININE , ISTAT 1.1 0.6 - 1.3 mg/dL [facility] (Urgent Care) Blood BLOOD SPECIMEN / Unknown 12/20/2024 8:32 AM CDT 12/20/2024 8:32 AM CDT Anthony Mg MD, PhD CHEMISTRY Fin al Result [facility] [address] [place] [address], [facility] (Urgent Care) [address] [place] [address] * LIPID PANEL W REFLEX MEASURED LDL (01/12/2019 8:59 AM CDT) CHOLESTEROL,TOTAL 173 100 - 199 mg/dL 01/12/2019 4:42 PM CDT [facility] TRIGLYCERIDES 147 <150 mg/dL 01/12/2019 4:42 PM CDT [facility] HDL CHOLESTEROL 41 >40 mg/dL 9 4:42 PM CDT [facility] NON-HDL CHOLESTEROL 132 <145 mg/dl 01/12/2019 4:42 PM CDT [facility] CHOL/HDL RATIO 4.22 <4.50 01/12/2019 4:42 PM CDT [facility] LDL CHOLESTEROL 103 <=130 mg/dL 01/12/2019 4:42 PM CDT [facility] PROVIDER ORDERED STATUS FASTING 01/12/2019 4:42 PM CDT [facility] Blood BLOOD SPECIMEN / Unknown Venipuncture / Unknown 01/12/2019 8:59 AM CDT 01/12/2019 8:59 AM CDT us Tavo Balderrama MD CHEMISTRY Final Res ult [facility] [address] [place] [address], from Last 3 Months or Most Recently Relevant to Health Maintenance Insurance [facility] Advance Directives * Full Code (Latest Code Status on File) Date Activated Date Inactivated Comments 12/24/2016 7:04 AM 12/25/2016 1:11 PM * Full Code Date Activated Date Inactivated Comments 10/01/2016 1:33 PM 10/03/2016 2:46 PM Question Answer Comments Code Status Discussion: Discussed * Full Code Date Activated Date Inactivated Comments 01/19/2009 6:16 AM 01/19/2009 5:10 PM Care Teams Supervisor [employer] Treatment Plant Relationship Specialty Start Date End Date Ulysses Foreman MD [id number] [place] [address] PCP - General Family Practice 04/10/20
[2025-03-17 06:10] VITALS: BP 178/122; PULSE 85; RESP 18; TEMP 36.6; O2SAT 98; BMI 33.7
[2025-03-17 06:41] LABS: Lactate* 1.8 mmol/L (0.5-1.9)
[2025-03-17 06:55] LABS: Appearance Urine Clear (Clear); Bilirubin Urine Negative (Negative); Blood Urine Negative (Negative); Color Urine Yellow (Yellow); Glucose Urine Negative (Negative); Ketones Urine Negative (Negative); Leukocyte Esterase Urine Trace (Negative); Nitrite Urine Negative (Negative); Protein Urine 1+ (Negative); Specific Gravity Urine >= 1.030 (1.000-1.030); Urobilinogen Urine 0.2 (0.2-1.0); pH Urine 5.5 (5.0-8.5)
[2025-03-17 06:56] LABS: Basophils Absolute Auto 0.07 K/uL (0.00-0.30); Basophils Percent Auto 0.7 % (0.0-3.0); Eosinophils Absolute Auto 0.27 K/uL (0.00-0.50); Eosinophils Percent Auto 2.5 % (0.0-7.0); Hemoglobin* 15.9 gm/dL (13.5-17.5); Immature Granulocytes Abs Auto 0.04 K/uL (0.00-0.30); Immature Granulocytes Pct Auto 0.4 %; Lymphocytes Absolute Auto 3.05 K/uL (0.90-2.90); Lymphocytes Percent Auto 28.6 % (20-44); Mean Corpuscular HGB Conc 35 gm/dL (32-36); Mean Corpuscular Hemoglobin 31 pg (26-34); Mean Corpuscular Volume 91 fL (80-100); Monocytes Percent Auto 9.1 % (0.0-11.0); Neutrophils Absolute Auto 6.26 K/uL (1.7-7.0); Neutrophils Percent Auto 58.7 % (42.0-72.0); Platelet Count* 194 K/uL (140-440); RDW Coefficient of Variation % 12.4 % (11.5-15.5); Red Blood Count 5.06 m/uL (4.30-5.90); White Blood Count* 10.66 K/uL (4.50-11.00)
[2025-03-17 06:57] LABS: Slide Review Reflex No
[2025-03-17 07:08] LABS: Chloride* 100 mmol/L (96-114)
[2025-03-17 07:09] LABS: Bacteria Urine Few; Mucus Urine Few; RBC Urine 0-2 (0-2); Squamous Epithelial Cell Urine Few (None-Few)
[2025-03-17 07:09] LABS: Albumin* 4.6 g/dL (3.3-5.0); Potassium* 3.9 mmol/L (3.6-5.1); Sodium* 139 mmol/L (135-149)
[2025-03-17 07:12] LABS: Alanine Aminotransferase* 90 U/L (4-50); Alkaline Phosphatase* 61 U/L (40-150); Anion Gap 13 mEq/L (7-15); Aspartate Amino Transferase* 68 U/L (12-35); Bilirubin Total* 1.5 mg/dL (0.1-1.5); Blood Urea Nitrogen* 24 mg/dL (7-30); Calcium* 9.5 mg/dL (8.4-10.6); Carbon Dioxide* 26 mmol/L (20-32); Creatinine* 1.1 mg/dL (0.5-1.5); Est. Creatinine Clearance* 62.59; Estimated Glomerular Filt Rate 75 ml/min; Glucose* 168 mg/dL (60-115); Lipase* 130 U/L (23-300); Total Protein* 7.7 g/dL (6.0-8.3)
[2025-03-17 07:16] VITALS: BP 153/106; PULSE 81; RESP 16; O2SAT 98
[2025-03-17 07:25] LABS: C Reactive Protein* < 0.5 mg/dL (0.5-1.0)
[2025-03-17] MEDS: CYCLOBENZAPRINE HCL 10 MG TABLET 5 MG PO (07:54)
[2025-03-17] MEDS: KETOROLAC 30 MG/ML inj IM (07:54)
[2025-03-17] MEDS: predniSONE 20 MG TABLET 40 MG PO (07:54)
[2025-03-17] MEDS: GABAPENTIN 300 MG CAPSULE PO (08:04)
--- NOTE | 2025-03-17 08:51 | ED.GENADULT ---
HPI - General Adult General Chief complaint: Flank Pain Stated complaint: THINKS KIDNEY STONES Time Seen by Provider: 03/17/25 06:34 History of Present Illness HPI narrative: Friendly 64-year-old female presents to the emergency department with persistent right flank area pain. This is been ongoing for about 5 days. Was evaluated in the ED 2 days ago. Pain was thought to be mechanical back pain. He did have a scan that showed that he has a couple of kidney stones but they are very small and there with in the kidney parenchyma. When this was communicated with him I think he thought that this could potentially be the source of his pain, we clarified this with him quickly. He says that his urine has looked a little bit more dark today. He has been up all night not sleeping. Has tried taking couple of oxycodone, have not found that helpful. Is not on steroids. Is not regularly using Tylenol or ibuprofen to help with symptoms also. No trauma or injury. Has a history of some minor back sprains but has never had MRIs or advanced imaging. He does have a history of cardiac ablation and a pacemaker, unrelated. He is not experiencing any cardiac symptoms today. No fever, no burning with urination, pain is worse with certain movements. No numbness or tingling, no loss of bowel or bladder function. Past medical history notable for prior bicuspid aortic valve, cardiac ablation pacemaker placement. Home meds are carvedilol, lisinopril, aspirin, statin. Allergies reviewed. Nonsmoker. ROS notable for the right flank pain as described above only, otherwise denies times 12 systems. Related Data Previous Rx's ?Medication ?Instructions ?Recorded albuterol sulfate 90 mcg/actuation 2 puff inhalation Q6H PRN 08/28/23 aerosol inhaler (Ventolin HFA) shortness of breath or wheezing #8.5 grams aspirin 81 mg tablet,delayed 81 mg PO QDAY #90 tabs 08/28/23 release colchicine 0.6 mg tablet 0.6 mg PO BID #180 tabs 08/02/24 rosuvastatin 20 mg tablet 20 mg PO QDAY #90 tabs 08/02/24 carvedilol 3.125 mg tablet 6.25 mg (2 x 3.125 mg) PO BID #360 02/07/25 tabs lisinopril 40 mg tablet 40 mg PO QDAY #90 tabs 02/07/25 metformin 750 mg tablet,extended 1,500 mg (2 x 750 mg) PO QDAY #180 02/07/25 release 24 hr tabs cyclobenzaprine 10 mg tablet 10 mg PO HS PRN muscle spasm #20 03/17/25 tabs gabapentin 300 mg capsule 300 mg PO BID PRN Nerve pain #30 03/17/25 caps oxycodone 5 mg tablet 5 mg PO Q6H PRN pain #10 tabs 03/17/25 prednisone 20 mg tablet 20 mg PO BID #10 tabs 03/17/25 Allergies Allergy/AdvReac Type Severity Reaction Status Date / Time alcohol (From Mastisol Allergy Unknown Unknown Verified 03/17/25 06:13 Adhesive) diltiazem Allergy Unknown Unknown Verified 03/17/25 06:13 gum mastic (From Mastisol Allergy Unknown Unknown Verified 03/17/25 06:13 Adhesive) methyl salicylate (From Allergy Unknown Unknown Verified 03/17/25 06:13 Mastisol Adhesive) storax (From Mastisol Allergy Unknown Unknown Verified 03/17/25 06:13 Adhesive) hayfever Allergy Mild congestion Uncoded 02/07/25 08:44 [facility] Medical History Elevated LFTs ?R79.89 - Other specified abnormal findings of blood chemistry (ICD-10) Diabetes mellitus ?E11.9 - Type 2 diabetes mellitus without complications (ICD-10) Encounter for annual physical exam ?Z00.00 - Encounter for general adult medical examination without abnormal findings (ICD-10) Social History Narrative: Retired 2 children Former smoker, quit in 1980, smoked for 4 years What is your current living situation?: declined to answer Problems where you live: declined to answer In the past 12 months, utilities in danger of being shut off: declined to answer In past 12 months, lack of transportation kept you from medical appts, meetings, work, or getting things needed for daily living: declined to answer In the past 12 mos, have been you worried that your food would run out before you had money to buy more?: declined to answer In the past 12 mos, the food you bought just didn't last and you didn't have money to buy more?: declined to answer Smoking Status: Former smoker How often do you have a drink containing alcohol: monthly or less How often do you have six or more drinks on one occasion: Never AUDIT-C Alcohol total score: 1 Non-prescribed substance use: denies use How often does anyone, including family, friends and others, physically hurt you: decline to answer How often does anyone, including family, friends and others, insult or talk down to you: decline to answer How often does anyone, including family, friends and others, threaten you with harm: decline to answer How often does anyone, including family, friends and others, scream or curse at you: decline to answer Health Related Social Needs: unsheltered homelessness (Z59.02) Exam Const: Vital Signs, click to edit/add: Vital Signs - 24 hr 03/17/25 06:10 03/17/25 07:16 Temperature 97.9 F Pulse Rate [Right Pulse Oximeter] 85 81 Respiratory Rate 18 16 Blood Pressure [Ri ght Upper Arm] 178/122 H 153/106 H Pulse Oximetry 98 98 Oxygen Delivery Me thod Room Air Room Air Documenting provider has reviewed patient's vital signs: yes Common normals: no apparent distress and alert General appearance: cooperative and well kempt HENMT: Common normals: normocephalic Head and scalp: normocephalic Resp: Common normals: normal respiratory effort Effort & inspection: able to speak in complete sentences Back & Pelvis: Common normals: thoracic and lumbar spine normal to inspection and no thoracic nor lumbar tenderness Sacroiliac joints: SI joints normal Other: Some mild tenderness on palpation of the lateral process of right side L4/L5, some paraspinal muscle tenderness as well. Examination shows clear positive straight leg lift sign on the right at 30-70 degrees exactly as predicted. Left side normal. Pain worsens with extension in a standing exam, spondylosis testing is positive on the right as well. Left-side negative. Excellent muscle strength of the lower extremities, normal sensation of lower extremities. No signs of joint swelling or inflammation of lower extremities. Extremity: Common normals: normal to inspection, normal capillary refill and no joint enlargement Neuro: Sensorium/orientation: alert Speech: speech normal Gait (neuro): normal gait Motor exam: strength 5/5 throughout Psych: Appearance: well kempt Attitude: engaged Activity/motor behavior: appropriate eye contact Insight: insight good Judgement: judgment good Skin: Common normals: no rashes or lesions noted General skin exam: no rashes or lesions noted Course Course ED Course: 64-year-old male with radicular-type right-sided flank area pain. CT reviewed from 2 days ago. Punctate kidney stones are not in the ureter. The urinalysis is reviewed and since there is not blood or signs of infection I think that a kidney stone is not the source of his pain and I do not think repeating that study would be useful. I did 0 when more on the bony areas on the CT and do clearly see degenerative changes at L4, L5 and S1 which would certainly explain his symptoms as well. This was discussed with patient. I recommended a trial of steroids, rationale and use discussed. Forty of prednisone to be given here in the ED then he will continue on 20 b.i.d. for 5 days. We discussed Flexeril at bedtime to help with sleep and relax his muscles. He to relax the muscles, Tylenol and ibuprofen were reviewed. Will give Toradol here in the ED and a half dose of Flexeril as well. He has about half of the supply of oxycodone that was given a few days ago does not find it very helpful but he is actually leaving for [place] for 12 days starting tomorrow. Because of this I will give him a small additional supply of 10 oxycodone to take with him in case the pain becomes severe he assures me that his will be doing the driving. I have also decided to give him a small amount of gabapentin 300 b.i.d., may increase to t.i.d. if needed to see if this is more helpful for his pain than the oxycodone. A trial dose will be given here in the ED. Side-effect profile clearly reviewed. Low back exercise handout given as well written instructions are provided. Alarm symptoms reviewed that would warrant ED eval as well. Counseled patient that this will probably relieved the radiculopathy but he arthritis will still persists. Physical therapy and primary care follow-up is needed. Additional measures like injections and more advanced imaging can be considered if he does not respond to initial treatment. All questions answered. Vital Signs Vital signs: Initial Vital Signs Temperature 97.9 F 03/17/25 06:10 Temperature Source Temporal Artery Scan 03/17/25 06:10 Pulse Rate 85 03/17/25 06:10 Pulse Rhythm Regular 03/17/25 06:10 Pulse Strength 3+ Normal 03/17/25 06:10 Respiratory Rate 18 03/17/25 06:10 Blood Pressure 178/122 H 03/17/25 06:10 Blood Pressure Mean 140 H 03/17/25 06:10 Blood Pressure Position Supine 03/17/25 06:10 Pulse Oximetry 98 03/17/25 06:10 Oxygen Delivery Method Room Air 03/17/25 06:10 Vital Signs Temperature 97.9 F 03/17/25 06:10 Pulse Rate 85 03/17/25 06:10 Respiratory Rate 18 03/17/25 06:10 Blood Pressure 178/122 H 03/17/25 06:10 Pulse Oximetry 98 03/17/25 06:10 Oxygen Delivery Method Room Air 03/17/25 06:10 Temperature 97.9 F 03/17/25 06:10 Pulse Rate 81 03/17/25 07:16 Respiratory Rate 16 03/17/25 07:16 Blood Pressure 153/106 H 03/17/25 07:16 Pulse Oximetry 98 03/17/25 07:16 Oxygen Delivery Method Room Air 03/17/25 07:16 Medications Administered Medications: Discontinued Medications Generic Name Dose Route Start Last Admin Trade Name Sharad PRN Reason Stop Dose Admin Cyclobenzaprine HCl 5 mg 03/17/25 07:44 03/17/25 07:54 Cyclobenzaprine Hcl 10 Mg Tablet PO 03/17/25 07:45 5 mg ONCE ONE Administration Gabapentin 300 mg 03/17/25 07:57 03/17/25 08:04 Gabapentin 300 Mg Capsule PO 03/17/25 07:58 300 mg ONCE ONE Administration Ketorolac Tromethamine 30 mg 03/17/25 07:44 03/17/25 07:54 Ketorolac 30 Mg/Ml Inj IM 03/17/25 07:45 30 mg ONCE ONE Administration Prednisone 40 mg 03/17/25 07:44 03/17/25 07:54 Prednisone 20 Mg Tablet PO 03/17/25 07:45 40 mg ONCE ONE Administration Medical Decision Making Lab Data Lab results reviewed: Yes I reviewed the patient's lab results Lab results narrative: Labs very reassuring. Labs: Lab Results 03/17/25 03/17/2503/17/25 Range/Units 06:15 06:22 06:29 WBC 10.66 (4.50-11.00) K/uL RBC 5.06 (4.30-5.90) m/uL Hgb 15.9 (13.5-17.5) gm/dL Hct 46.0 (37.0-53.0) % MCV 91 (80-100) fL MCH 31 (26-34) pg MCHC 35 (32-36) gm/dL RDW Coeff of Pooja 12.4 (11.5-15.5) % Plt Count 194 (140-440) K/uL Neut % (Auto) 58.7 (42.0-72.0) % Lymph % (Auto) 28.6 (20-44) % Ada % (Auto) 9.1 (0.0-11.0) % Eos % (Auto) 2.5 (0.0-7.0) % Baso % (Auto) 0.7 (0.0-3.0) % Neut # (Auto) 6.26 (1.7-7.0) K/uL Lymph # (Auto) 3.05 H (0.90-2.90) K/uL Ada # (Auto) 1.00 H (0.00-0.90) K/UL Eos # (Auto) 0.27 (0.00-0.50) K/uL Baso # (Auto) 0.07 (0.00-0.30) K/uL Abs Immat Gran (auto) 0.04 (0.00-0.30) K/uL Imm/Tot Granulo (auto) 0.4 % Sodium 139 (135-149) mmol/L Potassium 3.9 (3.6-5.1) mmol/L Chloride 100 (96-114) mmol/L Carbon Dioxide 26 (20-32) mmol/L Anion Gap 13 (7-15) mEq/L BUN 24 (7-30) mg/dL Creatinine 1.1 (0.5-1.5) mg/dL Estimated Creat Clear 62.59 Estimated GFR 75 ml/min Glucose 168 H (60-115) mg/dL Lactate 1.8 (0.5-1.9) mmol/L Calcium 9.5 (8.4-10.6) mg/dL Total Bilirubin 1.5 (0.1-1.5) mg/dL AST 68 H (12-35) U/L ALT 90 H (4-50) U/L Alkaline Phosphatase 61 (40-150) U/L C-Reactive Protein < 0.5 L (0.5-1.0) mg/dL Total Protein 7.7 (6.0-8.3) g/dL Albumin 4.6 (3.3-5.0) g/dL Lipase 130 (23-300) U/L Urine Color Yellow (Yellow) Urine Appearance Clear (Clear) Urine pH 5.5 (5.0-8.5) Ur Specific [place] >= 1.030 (1.000-1.030) Urine Protein 1+ A (Negative) Urine Glucose (UA) Negative (Negative) Urine Ketones Negative (Negative) Urine Blood Negative (Negative) Urine Nitrite Negative (Negative) Urine Bilirubin Negative (Negative) Urine Urobilinogen 0.2 (0.2-1.0) Ur Leukocyte Esterase Trace A (Negative) Urine RBC 0-2 (0-2) Urine WBC 10-25 A (0-5) Ur Squamous Epith Cells Few (None-Few) Other Sediment (None) Urine Bacteria Few A (None) Urine Mucus Few A (None) Discharge Plan Discharge Clinical Impression: Herniated lumbar intervertebral disc Patient Disposition: Home w/ Parent or Adult Condition: Stable Instructions: Lumbar Radiculopathy (ED), Lower Back Exercises (ED) Additional Instructions: As we discussed, the CT scan performed a few days ago does show that you have a few tiny kidney stones but they are all up in the kidneys where they belong, not traveling down your ureter and are not the source of your symptoms. Your repeat labs today are quite reassuring. Your exam is highly suspicious for a herniated disc with nerve impingement. Review of your CT scan does show that there is a fair amount of arthritis, especially in the L5 area. This clinically fits very well with the symptoms and exam presented today. This arthritis has certainly been present for quite some time but once the nerve starts getting pressed, symptoms tend to newly appear. For many, if we can calm down that inflammation even a small amount, the nerve is no longer being pressed, symptoms improved dramatically. I recommend that we start you on steroids, specifically prednisone. Your given a dose here in the emergency department. He will take this twice daily. I do not want you taking it within 4 hours of bedtime. Try to take a dose right away in the morning and then another dose mid to late afternoon. He will take this for 5 days. I will give you a few more oxycodone tablets to have if needed though I agree with you these do not tend to help considerably. I also recommend a muscle relaxant, Flexeril. He will take this full pill at bedtime to help with pain and sleep. Half of a pill if necessary up to every 8 hours during the day as well. Try to reserve this just for bedtime as it is quite sedating. I will also give you gabapentin to try. This is specifically a nerve pain medication. I would recommend you take 1 pill 2 times a day for the next couple of days. You may increase to 3 times per day if needed. It is important you start physical therapy to help with the symptoms. Your primary care doctor consider referral if you need 1, but typically 1 is not needed. Follow up with her primary doctor if things are not improving dramatically in 5 days for referral for additional workup and consideration of more advanced management like injections or other therapies. You should return to the emergency department if you have sudden loss of function of the bowel or bladder, inability to move your legs or worsening neurological changes. Activity Level: Activity as Tolerated Discharge Diet: Regular Prescriptions: New prednisone 20 mg tablet 20 mg PO BID Qty: 10 0RF cyclobenzaprine 10 mg tablet 10 mg PO HS PRN (Reason: muscle spasm) Qty: 20 1RF oxycodone 5 mg tablet 5 mg PO Q6H PRN (Reason: pain) Qty: 10 0RF gabapentin 300 mg capsule 300 mg PO BID PRN (Reason: Nerve pain) Qty: 30 1RF No Action metformin 750 mg tablet extended release 24 hr 1,500 mg PO QDAY Qty: 180 3RF lisinopril 40 mg tablet 40 mg PO QDAY Qty: 90 1RF carvedilol 3.125 mg tablet 6.25 mg PO BID Qty: 360 0RF Rx Instructions: must administer with a meal/food albuterol sulfate [Ventolin HFA] 90 mcg/actuation HFA aerosol inhaler 2 puff inhalation Q6H PRN (Reason: shortness of breath or wheezing) Qty: 8.5 3RF aspirin 81 mg tablet,delayed release (/EC) 81 mg PO QDAY Qty: 90 3RF colchicine 0.6 mg tablet 0.6 mg PO BID Qty: 180 3RF rosuvastatin 20 mg tablet 20 mg PO QDAY Qty: 90 4RF Follow Up/Referrals: Ulysses Foreman MD [Primary Care Provider, Family Practice] Stand Alone Forms: MyHealth Info Instructions
== END 2025-03-17 08:17 | disposition home or self-care (01) ==
LOC: ED 07:55
PROVIDERS: Emergency Provider Family Medicine; PCP Family Medicine
DX: M51.26 Other intervertebral disc displacement, lumbar region (principal)
CPT/HCPCS: 36415; 80053; 81001; 83605; 83690; 85025; 86140; 87086; 96372; 99284; A9270; J1885; J7512

== ENCOUNTER 2025-08-01 08:16 | Outpatient (CLI) | payer MEDICARE, BC, SELFPAY | END 2025-08-01 08:17 | disposition home or self-care (01) | LOC: NFLDREF 08-03 15:54 | PROVIDERS: PCP Family Medicine; Referring Provider Family Medicine; Visit Provider Family Medicine | DX: E11.9 Type 2 diabetes mellitus without complications (principal); I10 Essential (primary) hypertension | CPT/HCPCS: 80053; 80061; 82043; 82570; G0103 ==